=== PATIENT | female | born 1950 | race African-American/Black ===

== ENCOUNTER 2016-05-26 08:48 | Outpatient (CLI) | payer OTHER ==
--- NOTE | 2016-05-26 14:50 | Ultrasound Report ---
DIAGNOSTIC LEFT MAMMOGRAM AND TARGETED LEFT BREAST ULTRASOUND: HISTORY: Recall for left parenchymal asymmetry. FINDINGS: On the spot compression image, there is partial effacement of the density with no suspicious radiographic features. The asymmetric density is not definitely visualized on the 90 degree medial lateral view. Sonographic evaluation of the area demonstrates no evidence of a mass. IMPRESSION: No suspicious findings. BI-RADS CATEGORY: 2 = Benign ACR BI-RADS MAMMOGRAPHIC CODES: 0 = Needs additional imaging evaluation; 1 = Negative; 2 = Benign; 3 = Probably benign; 4 = Suspicious; 5 = Malignant; 6 = Known biopsy-proven malignancy COMMENT: 1. Dense breast tissue, i.e., adenosis, fibrocystic changes, etc., may obscure an underlying neoplasm. 2. Approximately 10% of cancers are not detected with mammography. 3. A negative mammography report should not delay biopsy if a clinically suspicious mass is present. RECOMMENDATION: Annual screening.
== END 2016-05-26 08:49 | disposition home or self-care (01) ==
LOC: MAMMO 08:48
PROVIDERS: ATTEND Family Medicine
DX: R92.2 Inconclusive mammogram (principal)
CPT/HCPCS: 76642; G0206

== ENCOUNTER 2017-05-04 10:20 | Outpatient (CLI) | payer OTHER ==
--- NOTE | 2017-05-04 12:31 | Mammography Report ---
BILATERAL MAMMOGRAM: FINDINGS: There are scattered fibroglandular densities (approximately 25%-50% glandular). No mass, distortion, suspicious calcification, or skin change is seen. No interval change compared to exams dating back to 2015. CAD was utilized. IMPRESSION: Negative mammogram. There is no mammographic evidence of malignancy. RECOMMENDATION: Follow-up per ACS guidelines. BI-RADS CATEGORY: 1 = Negative ACR BI-RADS MAMMOGRAPHIC CODES: 0 = Needs additional imaging evaluation; 1 = Negative; 2 = Benign; 3 = Probably benign; 4 = Suspicious; 5 = Malignant; 6 = Known biopsy-proven malignancy COMMENT: 1. Dense breast tissue, i.e., adenosis, fibrocystic changes, etc., may obscure an underlying neoplasm. 2. Approximately 10% of cancers are not detected with mammography. 3. A negative mammography report should not delay biopsy if a clinically suspicious mass is present. COMMENT: Patient follow-up letters are generated in [employer].
== END 2017-05-04 10:21 | disposition home or self-care (01) ==
LOC: MAMMO 10:20
DX: Z12.31 Encounter for screening mammogram for malignant neoplasm of breast (principal); E11.9 Type 2 diabetes mellitus without complications; I10 Essential (primary) hypertension; J45.909 Unspecified asthma, uncomplicated; E78.00 Pure hypercholesterolemia, unspecified
CPT/HCPCS: 77067; G0202

== ENCOUNTER 2019-05-13 09:49 | Outpatient (CLI) | payer MEDICARE ==
--- NOTE | 2019-05-13 11:52 | Mammography Report ---
DIGITAL SCREENING MAMMOGRAM WITH CAD, 05/13/2019 INDICATION: Routine screening mammography. TECHNIQUE: Digital bilateral 2D mammography was obtained in the craniocaudal and mediolateral obliq ue projections. This examination was interpreted with the benefit of Computer-Aided Detection analysi s. COMPARISON: 05/12/2018 FINDINGS: Breast Density: The breasts are heterogeneously dense, which may obscure small masses. There is no evidence of dominant mass, suspicious calcifications or architectural distortion in eithe r breast. Bilateral benign arterial calcifications. IMPRESSION: No mammographic evidence of malignancy. Follow up recommendation: Routine yearly BI-RADS Category 2: Benign. A "normal" or negative report should not discourage follow up or biopsy of a clinically significant f inding. A written summary of these findings will be mailed to the patient. The patient will be entered into a mammography reporting system which will generate a reminder letter for the patient's next appointmen t at the appropriate interval. The [employer] recommends yearly mammograms starting at age 40 and continuing as l mary as a woman is in good health. Breast MRI is recommended for women with an approximate 20-25% or greater lifetime risk of breast cancer, including women with a strong family history of breast or ova ryan cancer or who have been treated for Hodgkin's disease. Signer Name: Ronnie Mendes MD Signed: 05/13/2019 11:47 AM Workstation Name: [id number]
== END 2019-05-13 09:50 | disposition home or self-care (01) ==
LOC: MAMMO 09:49
PROVIDERS: ATTEND Family Medicine
DX: Z12.31 Encounter for screening mammogram for malignant neoplasm of breast (principal)
CPT/HCPCS: 77067

== ENCOUNTER 2020-10-25 09:46 | Outpatient (CLI) | payer MEDICARE ==
--- NOTE | 2020-10-25 12:29 | Mammography Report ---
DIGITAL SCREENING MAMMOGRAM WITH CAD, 10/25/2020 CLINICAL INFORMATION / INDICATION: Routine screening mammography. SCRN MAMMO TECHNIQUE: Digital bilateral 2D mammography was obtained in the craniocaudal and mediolateral obliqu e projections. This examination was interpreted with the benefit of Computer-Aided Detection analysis . COMPARISON: 05/13/19, 05/12/18 FINDINGS: Breast Density: There are scattered areas of fibroglandular density. No dominant mass, suspicious calcifications, or architectural distortion in either breast. IMPRESSION: No mammographic evidence of malignancy. Follow up recommendation: Routine yearly BI-RADS Category 1: Negative. A "normal" or negative report should not discourage follow up or biopsy of a clinically significant f inding. A written summary of these findings will be mailed to the patient. The patient will be entered into a mammography reporting system which will generate a reminder letter for the patient's next appointmen t at the appropriate interval. The [employer] recommends yearly mammograms starting at age 40 and continuing as l mary as a woman is in good health. Breast MRI is recommended for women with an approximate 20-25% or greater lifetime risk of breast cancer, including women with a strong family history of breast or ova ryan cancer or who have been treated for Hodgkin's disease. Signer Name: Neal Red MD Signed: 10/25/2020 12:24 PM Workstation Name: [id number]
== END 2020-10-25 09:47 | disposition home or self-care (01) ==
LOC: MAMMO 09:46
PROVIDERS: ATTEND Family Medicine
DX: Z12.31 Encounter for screening mammogram for malignant neoplasm of breast (principal)
CPT/HCPCS: 77067